=== PATIENT | female | born 1945 | race African-American/Black ===

== ENCOUNTER 2023-12-09 05:02 | Emergency (ER) | payer MEDICARE, OTHER ==
[~2023-12-09] VITALS: Ht 172.7 cm; Wt 120.0 kg
[2023-12-09 05:05] VITALS: O2SAT 99
[2023-12-09] MEDS: DIPHENHYDRAMINE 25MG CAPSULE PO ONE (06:45)
[2023-12-09] MEDS: KETOROLAC 30MG/ML VIAL IM ONE (07:14)
[2023-12-09] MEDS: METOCLOPRAMIDE HCL 10MG/2ML VIAL IM ONE (07:14)
[2023-12-09 07:35] VITALS: BP 132/64; PULSE 70; RESP 16; TEMP 97.8
== END 2023-12-09 07:57 | disposition home or self-care (01) ==
LOC: ER 05:24
DX: R51.9 Headache, unspecified (principal); J44.9 Chronic obstructive pulmonary disease, unspecified; I10 Essential (primary) hypertension
CPT/HCPCS: 99284; 96372; Q0163; J1885; J2765